=== PATIENT | female | born 1995 | race African-American/Black ===

== ENCOUNTER 2020-06-06 14:58 | Outpatient (CLI) | payer BC, OTHER ==
[2020-06-07 12:06] LABS: SARS-CoV-2 MS2 Positive; SARS-CoV-2 N Gene Negative; SARS-CoV-2 S Gene Negative; SARS-CoV-2 by NAA Not Detected (NotDetected); SARS-CoV-2 orf1ab Negative
== END 2020-06-06 14:59 | disposition home or self-care (01) ==
LOC: LABBT 14:58
PROVIDERS: ATTEND Family Medicine
DX: Z20.828 Contact with and (suspected) exposure to other viral communicable diseases (principal)
CPT/HCPCS: 87635; U0003

== ENCOUNTER 2020-06-06 15:39 | Inpatient (IN) | payer BC, OTHER ==
[2020-06-06 16:29] VITALS: BMI 23.8
[2020-06-06] MEDS ORDERED: hydrALAZINE 20 MG/ML VIAL SLOW IVP PRN ×2 (16:54→18:39)
--- NOTE | 2020-06-06 17:01 | PDOC.FPROB ---
FMR OB H&P: HPI - History of Present Illness History of Present Illness: 24yo at 38.6WGA by LMP/8.5wUS presents for contractions. she states she had increased contractions which have now spaced out some but are still painful. she also had some spotting when wiping once just recently. No LOF. endorses good mvmt. Primary Care Physician: James Cha FMR OB H&P: Current - Care : 2 Para: 1001 Gestational age: 38.6 Dating Criteria: LMP/8.5w US - OB Labs Blood type: O RH: positive Antibody Screen: negative HIV: negative RPR: negative HepBsAg: negative Rubella: immune Gonorrhea: negative Chlamydia: negative GBS: positive FMR OB H&P: History - Past Medical History PMH: none - OB History OB History: Hx of SGA baby (5 lbs) - Surgical History Sx History: none - Social History Social History: Denies TAD - Family History Family History: non contributory FMR OB H&P: Medications - Current Home Medications: Medication Instructions Recorded Confirmed Type Comb No.42/Folic Acid 1 tab PO DAILY 06/06/20 06/06/20 History [Prena1 Chewable Tablet] Allergies/Adverse Reactions: Allergies Allergy/AdvReac Type Severity Reaction Status Date / Time No Known Allergies Allergy Verified 06/06/20 16:21 FMR OB H&P: ROS - Review of Systems General: denies: fever/chills, fatigue Eyes: denies: eye pain, vision changes ENT: denies: nasal congestion, rhinorrhea Cardiovascular: denies: chest pain, palpitation Respiratory: denies: cough, shortness of breath Gastrointestinal: denies: abdominal pain, indigestion Genitourinary (Female): denies: incontinence, dysuria Musculoskeletal: denies: pain, stiffness Neurologic: denies: numbness, syncope Integumentary: denies: itching, rash Endocrine: denies: cold intolerance, heat intolerance Psychological: denies: depression, anxiety FMR OB H&P: Physical Exam - Physical Exam General: NAD, awake, alert and oriented HEENT: normocephalic and atraumatic, EOMI, MMM Neck: supple, trachea midline Chest: non-tender to palpation Breast: symmetric Heart: RRR, normal S1/S2 General: CTAB, no respiratory distress Abdomen: soft, gravid Musculoskeletal: normal gait and station, pulses present Skin: no rash, good tugor Lymphatic: no purpura, no petechia Psychiatric: intact recent and remote memory, good judgement and insight - Pelvic Exam SVE: /-1 FMR OB H&P: A/P - Problem List (1) Current Visit: Yes Status: Acute Discussion: Date/Time: 06/06/20 1655 tIUP, r/o labor A- Pt lives OOT, will r/o labor. Check is currently changed from check on Tuesday (closed/thick/high). Blood type O+. Reviewed labs P- will recheck in a couple of hours for change -will start Penicillin if making cervical change -screening covid pending (collected this AM) Hx of SGA -MD aware, previous child 5lbs on delivery. Pt has no showed several growth US outpt BV infection during -on 11/25, s/p Tx and DARLENE ASCUS-H dx on 03/2018 -Colpo on 12/25/19 with minimal change, pap at time was NILM, will consider repeat colpo 6w PP Vaginal polyp -1cm stalk, will excise PP oupt Addendum - Attending - Attending Attestation Date/Time: 06/07/20 0815 I personally evaluated the patient and discussed the management with Dr. Figueroa on 06/06/20 at 1700 I agree with the History, Examination, Assessment and Plan documented above with any addition or exceptions noted below. Presented in latent labor. Patient lives in [facility]. GBS positive. Since she will be 39 wks on 06/07, plan to observe for now. Expectant management if she changes and initiate PNC ppx. If no change, will consider keeping in hospital overnight and inducing early tomorrow morning given she lives far from the hospital. Patient agreeable to this plan.
[2020-06-06] MEDS ORDERED: Acetaminophen 500 MG TAB PO PRN (18:39)
[2020-06-06] MEDS ORDERED: NS / Oxytocin 40 units/1000ml 1,000 ML IV PRN (18:39)
[2020-06-06] MEDS ORDERED: Ondansetron PF 4 MG/2 ML Vial IVP PRN (18:39)
[2020-06-06] MEDS ORDERED: Butorphanol Tartrate 1 MG/ML VIAL SLOW IVP PRN (18:39)
[2020-06-06] MEDS ORDERED: Ibuprofen 800 MG TAB PO PRN (18:39)
[2020-06-06] MEDS ORDERED: Lidocaine 1% (PF) 30 ML VIAL SC PRN (18:39)
[2020-06-06] MEDS ORDERED: Promethazine HCl 25 MG/ML VIAL IM PRN (18:39)
--- NOTE | 2020-06-06 18:44 | PDOC.OBLPN ---
FMR OB Labor PN: Subj - Interval History Hospital Day: 0 Chief Complaint: ctx Indentification: 24yo at 38.6wks be ITUS Interval History: Pt is feeling well and has no complaints FMR OB Labor PN: Obj - Maternal Vital signs: BP: 119-121/64-73 HR: 88-101 - Procedures Procedures: N/A FMR OB Labor PN: Exam - Physical Exam General: NAD, awake, alert and oriented HEENT: normocephalic and atraumatic, grossly normal vision, grossly normal hea ring Neck: supple Chest: non-tender to palpation, no lesions Heart: RRR, normal S1/S2, no murmurs/rubs/gallops, pulses present, no edema General: CTAB, good air movement Abdomen: soft, gravid, bowel sound present, no masses Musculoskeletal: pulses present, FROM in all four extremities Neurological: no focal deficit Skin: no rash Lymphatic: no unusual bruising or bleeding Psychiatric: good judgement and insight, normal mood and affect - Pelvic Exam SVE: 3.5/50/-1 Membranes: Intact FMR OB Labor PN: A/P Discussion: Date/Time: 06/06/20 1838 tIUP, r/o labor - Cervical check at 1830 3.5/50/-1, changed from 1630 - T cat 1. Baseline ~130, good variability, several accels, no decels - Infrequent ctx, pt describes pelvic pressure but not pain - GBS + therefore starting Penicillin - Will recheck in 2-3hrs. If no change, will start Pitocin - Blood type O+ - Screening covid pending (collected this AM) Hx of SGA - Previous child 5lbs on delivery. - Pt has no showed several growth US outpt BV infection during - On 11/25, s/p tx and DARLENE ASCUS-H dx on 03/2018 - Colpo on 12/25/19 with minimal change - Pap at time was NILM - Will consider repeat colpo 6w PP Vaginal polyp - 1cm stalk, will excise PP oupt This H&P was discussed with Dr. Pena who agrees with the above documentation and plan.
[2020-06-06] MEDS ORDERED: Penicillin G Potassium 5 MILL.UNITS in Sodium Chloride 0.9% 100 ML IVPB SCH (18:45)
[2020-06-06] MEDS ORDERED: NS w/ Oxytocin 10 units 500 ML IV SCH (18:45)
[2020-06-06 19:42] LABS: Hemoglobin 10.7 g/dL (12.0-16.0); Mean Corpuscular HGB CONC 33.3 g/dL (32.0-36.0); Mean Corpuscular Volume 90.3 fL (78.0-98.0); Mean Platelet Volume 11.2 fL (7.4-10.4); Platelet Count 197 thou/uL (130-400); RBC Distribution Width 13.5 % (11.5-14.5); Red Blood Cell (RBC) Count 3.57 mill/uL (4.20-5.40); White Blood Cell (WBC) Count 10.6 thou/uL (4.8-10.8)
[2020-06-06] MEDS: Lactated Ringer's 1,000 ML IV SCH (20:06)
[2020-06-06 20:21] LABS: Syphilis Antibody Nonreactive (Nonreactive); Syphilis Antibody Index 0.02 S/CO (<1.00 Non-Reactive)
[2020-06-06 22:41] LABS: HBSAg Index 0.19 S/CO (0-0.99); Hep B Surf Ag Non-Reactive S/CO (NonReactive)
--- NOTE | 2020-06-06 22:49 | PDOC.BPN ---
- Brief Progress Note Encounter Date: 06/06/20 Encounter Time: 22:45 FHT strip check: FHT: Cat 1 with baseline of 130-140, moderate variability, and multiple accels. There was a 13min period during which the baseline increased to 160 and there was 1 variable decel. Ctx are occurring q6-12 min
--- NOTE | 2020-06-07 00:20 | PDOC.BPN ---
- Brief Progress Note Encounter Date: 06/07/20 Encounter Time: 00:15 Cervical check: 3 outer, 1 inner/60/-3. FHT cat 1: baseline ~140, significant variability, multiple accels, no decels. Vitals continue to be nml and stable Plan is to begin induction with cytotec. This was discussed with Dr. Pena and he agrees with the plan.
[2020-06-07] MEDS: Misoprostol 100 MCG TAB VAG SCH ×2 (00:52→11:09)
[2020-06-07] MEDS: Penicillin G 2.5 MILL.units 2.5 MILL.UNITS in Premix Bag 1 BAG IVPB SCH ×3 (00:52→11:08)
[2020-06-07] MEDS: Lactated Ringer's 1,000 ML IV SCH (04:06)
--- NOTE | 2020-06-07 04:21 | PDOC.BPN ---
- Brief Progress Note Encounter Date: 06/07/20 Encounter Time: 04:15 Labor check: Cervical check /-2, mid-position Vitals: BP 125/73. HR 81 FHT cat 1: baseline 130-140, mod variability, multiple accels, no decels Ctx occurring q1-4min. Plan is to check again in 4hrs and, once her ctx slow down a little, will start Pitocin.
[2020-06-07] MEDS ORDERED: Fentanyl 4 mcg/Bup 0.1% Cadd 100 ML ONE (04:44)
[2020-06-07] MEDS ORDERED: Ondansetron PF 4 MG/2 ML Vial IVP PRN ×2 (05:32→08:16)
[2020-06-07] MEDS ORDERED: diphenhydrAMINE 50 MG/ML VIAL IVP PRN (05:32)
[2020-06-07] MEDS ORDERED: Promethazine HCl 25 MG/ML VIAL IM PRN ×2 (05:32→08:16)
[2020-06-07] MEDS ORDERED: Lactated Ringer's 500 ML IV PRN (05:32)
[2020-06-07] MEDS ORDERED: Naloxone HCl 0.4 mg/ml Vial IVP PRN ×2 (05:32)
[2020-06-07] MEDS ORDERED: EPHEDRINE 25 MG/5 ML SYRINGE SLOW IVP PRN (05:32)
[2020-06-07] MEDS ORDERED: Fentanyl 4 mcg/Bupivacaine 0.1% Cassette 100 ML EPIDURAL SCH (05:45)
[2020-06-07] MEDS ORDERED: Communication Order-Pharmacy FS SCH (05:45)
--- NOTE | 2020-06-07 06:27 | PDOC.BPN ---
- Brief Progress Note Encounter Date: 06/07/20 Encounter Time: 06:00 Labor check. Her next cervical check was due at 0800 but she started feeling pressure and her nurse checked her and found her to have made significant change. She has only received one dose of cytotec at 0055 this morning. Ms. Badillo is doing well. She recently received her epidural and is only feeling pressure low in her pelvis. Ctx are occurring ~q2min on the monitor. Cervical check: 8/100/0, with a bulging bag Vitals: BPs 120s-130s/60s. HR 70s-80s. FHT cat 1: baseline 130, mod variability, a few early decels, no accels The plan is to allow her to labor down and see if her membranes will rupture spontaneously.
[2020-06-07] MEDS: NS / Oxytocin 40 units/1000ml 1,000 ML IV SCH ×2 (07:36→08:44)
[2020-06-07] MEDS ORDERED: Milk Of Magnesia 30 ML UDCUP PO PRN (08:16)
[2020-06-07] MEDS ORDERED: Benzocaine-Menthol 82.5 ML CAN TOP PRN (08:16)
[2020-06-07] MEDS ORDERED: hydrALAZINE 20 MG/ML VIAL SLOW IVP PRN (08:16)
[2020-06-07] MEDS ORDERED: Lanolin Ointment 7 GM TUBE TOP PRN (08:16)
[2020-06-07] MEDS ORDERED: Adacel (T-DAP) 0.5 ML SYRINGE IM ONE (08:16)
[2020-06-07] MEDS ORDERED: Preparation H Ointment 28 GM TUBE PR PRN (08:16)
[2020-06-07] MEDS ORDERED: diphenhydrAMINE 25 MG CAP PO PRN (08:16)
--- NOTE | 2020-06-07 10:32 | PDOC.OPDEL ---
OB Operative/Delivery Note - Additional Findings/Plan Compilations/Other Findings: Delivering Physician: Sylvie Cha Attending: Becky Procedure: Spontaneous Vaginal Delivery Anesthesia: epidural QBL: 198 ml Pre-op Diagnosis: 1. Term intrauterine in labor 2. Hx of SGA baby 3. Hx GBS positive Post-op Diagnosis: 1. Term intrauterine , delivered 2. same as above Indications: A 24 y/o female G2 now P2 presents due to contractions and was induced due to distance from home. Delivery Note: This is 24 yo F G2 now P2002 @ 39 wks who delivered a viable M at 0736 on 06/07/2020. Following an uneventful antepartum course, a vigorous M was delivered over an intact perineum in the occiput anterior position. Anterior Shoulder and then remainder of the body delivered. No nuchal cord. The head was held down and mouth and nares were bulb suctioned. Cord clamped after delayed cord clamping and cut and cord blood collected. Placenta delivered intact, with a marginalized cord insertion in the [place] presentation with a 3 vessel cord noted. Fundal massage was performed and the fundus was firm. The cervix and vagina were inspected and found to be free of lacerations. went to nursery in good condition for routine care. Apgars were 9/9 at 1 & 5 minutes, respectively. Patient tolerated delivery well and went to after routine recovery/care. ATTENDING ADDENDUM: I was present for and supervised the delivery. Agree with above documentation.
[2020-06-07] MEDS: Ibuprofen 800 MG TAB PO SCH ×2 (13:20→21:26)
[2020-06-07] MEDS: Prenatal Vitamin 1 TAB PO SCH (13:20)
[2020-06-07] MEDS: Acetaminophen 325 MG TAB PO PRN (17:14)
[2020-06-08] MEDS: Acetaminophen 325 MG TAB PO PRN ×2 (01:13→08:45)
[2020-06-08] MEDS: Ibuprofen 800 MG TAB PO SCH ×3 (06:01→21:05)
--- NOTE | 2020-06-08 07:01 | PDOC.PP ---
Post Progress Note Post Day #: 1 Subjective: Doing well. No concerns. Lochia less than normal menses. Pain well-controlled, mild cramping. Tolerating PO without n/v. Ambulating, Voiding. Stooling. Plans to follow up with NATHAN, Dr. Umu Cha for pediatric care. PO intake tolerated: yes Flatus: yes Ambulation: yes Vital Signs (12 hours) Temp Pulse Resp BP Pulse Ox 06/08/20 04:42 98.3 F 61 16 117/73 06/08/20 00:56 97.8 F 67 16 106/73 06/07/20 20:45 98.5 F 66 16 115/74 99 Weight Weight 64.864 kg - Physical Examination General: NAD (resting comfortably) Cardiovascular: no m/r/g, RRR Respiratory: clear to auscultation bilaterally Abdominal: + bowel sounds, no distention, appropriately TTP Fundus firm & at: below umbilicus Neurological: no gross focal deficits Psychiatric: A&Ox3, normal affect Result Diagrams: 06/06/20 19:30 Additional Labs: Post Labs Hep Bs Antigen Non-Reactive S/CO (NonReactive) 06/06/20 19:30 Blood Type O POSITIVE 06/06/20 21:43 (1) care following vaginal delivery Code(s): Z39.2 - ENCOUNTER FOR ROUTINE FOLLOW-UP Status: Acute - Assessment/Plan 24yo s/p @ 39wks, PPD #1 #PPD#1 s/p - TAGA M delivered on 06/07/20 @ 0736 - GBS positive with adequate tx - Incomplete PNC - Pain controlled, lochia decreased, tolerating po, voiding - Routine PP care #Vaginal poylp - plan to excise at follow up outpatient PCP: NATHAN - [facility] Dispo: Continue routine PP care. Anticipate discharge tomorrow. Baby requiring phototherapy. Addendum - Attending - Attending Attestation Date/Time: 06/08/20 1121 I personally evaluated the patient and discussed the management with Dr. Cha. I agree with the History, Examination, Assessment and Plan documented above with any addition or exceptions noted below.
[2020-06-08] MEDS: Prenatal Vitamin 1 TAB PO SCH (08:45)
[2020-06-08] MEDS ORDERED: Acetaminophen/Codeine 30-300mg Tablet PO SCH (11:15)
[2020-06-09] MEDS: Ibuprofen 800 MG TAB PO SCH (05:54)
--- NOTE | 2020-06-09 07:07 | PDOC.PP ---
Post Progress Note Post Day #: 2 Subjective: Doing very well, eager for discharge. Is staying in town with FOB parents for support. Ambulating, tolerating PO well, pain well controlled. lochia minimal. PO intake tolerated: yes Flatus: yes Ambulation: yes Vital Signs (12 hours) Temp Pulse Resp BP 06/08/20 21:11 98.1 F 67 16 121/75 Weight Weight 64.864 kg - Physical Examination General: NAD Cardiovascular: no m/r/g Respiratory: clear to auscultation bilaterally Abdominal: + bowel sounds Fundus firm & at: above pubic symphysis Neurological: no gross focal deficits Psychiatric: A&Ox3 Result Diagrams: 06/06/20 19:30 Additional Labs: Post Labs Hep Bs Antigen Non-Reactive S/CO (NonReactive) 06/06/20 19:30 Blood Type O POSITIVE 06/06/20 21:43 (1) care following vaginal delivery Code(s): Z39.2 - ENCOUNTER FOR ROUTINE FOLLOW-UP Status: Acute - Assessment/Plan 24yo s/p @ 39wks, PPD #2 #PPD#2 s/p - TAGA M delivered on 06/07/20 @ 0736 - GBS positive with adequate tx - Incomplete PNC - Pain controlled, lochia decreased, tolerating po, voiding - Routine PP care #Vaginal poylp - plan to excise at follow up outpatient PCP: NATHAN Garcia Dispo: Continue routine PP care. Anticipate discharge today with 2 week follow up in clinic. Addendum - Attending - Attending Attestation Date/Time: 06/09/20 1889 I personally evaluated the patient and discussed the management with Dr. Cha this morning. I agree with the History, Examination, Assessment and Plan documented above with any addition or exceptions noted below.
[2020-06-09 07:31] VITALS: BP 115/69; TEMP 98.6
[2020-06-09] MEDS: Prenatal Vitamin 1 TAB PO SCH (09:23)
== END 2020-06-09 12:00 | disposition home or self-care (01) | DRG 807 ==
LOC: L&D/OP 15:39 → L&D 18:59 → 3SW 06-07 10:18
PROVIDERS: ADMIT Family Medicine; ATTEND Family Medicine
PROC: 10E0XZZ Delivery of Products of Conception, External Approach (ICD-10-PCS; principal; 2020-06-07)
PROC: 10907ZC Drainage of Amniotic Fluid, Therapeutic from Products of Conception, Via Natural or Artificial Opening (ICD-10-PCS; 2020-06-07)
DX: O99.824 Streptococcus B carrier state complicating childbirth (principal); Z37.0 Single live birth; N84.2 Polyp of vagina; Z3A.38 38 weeks gestation of pregnancy; O75.89 Other specified complications of labor and delivery
CPT/HCPCS: 36415; 51702; 85027; 86780; 86850; 86900; 86901; 87340; 87635; 99285; J0595; J2540; J2590; J3490; U0003